=== PATIENT | female | born 1940 | race Caucasian/White ===

== ENCOUNTER 2019-04-06 12:16 | Emergency (ER) | payer MEDICARE ==
[2019-04-06] MEDS ORDERED: PREDNISONE 20 MG TABLET ONE (13:55)
[2019-04-06] MEDS ORDERED: IPRATROPIUM/ALBUTEROL SULFATE 3 ML SOLUTION IH ONE ×2 (14:01→15:27)
[2019-04-06 14:48] LABS: BASOPHILS % (AUTO) 0.7 % (0.0-5.0); EOSINOPHILS % (AUTO) 12.6 % (0.0-8.0); LYMPHOCYTES % (AUTO) 20.1 % (21.0-51.0); MEAN CORPUSCULAR HEMOGLOBIN 31.2 pg (27.0-33.0); MEAN CORPUSCULAR HGB CONC 34.6 g/dL (32.0-36.0); MEAN CORPUSCULAR VOLUME 90.1 fL (79-99); MONOCYTES % (AUTO) 11.8 % (3.0-13.0); NEUTROPHILS % (AUTO) 54.8 % (40.0-77.0); NUCLEATED RED BLOOD CELLS 0.1 % (0.0-0.19); PLATELET COUNT (AUTO) 318 K/uL (130-400); RED BLOOD CELL COUNT(AUTO) 3.88 MIL/uL (4.00-5.50); RED CELL DISTRIBUTION WIDTH 12.9 % (11.0-15.5); WHITE BLOOD COUNT (AUTO) 9.1 K/uL (4.8-10.8)
[2019-04-06 15:11] LABS: ALBUMIN 3.6 g/dL (3.5-5.0); BILIRUBIN,TOTAL 1.2 mg/dL (0.2-1.0); CREATININE 0.9 mg/dL (0.5-1.5); TOTAL PROTEIN, SERUM 7.6 g/dL (6.0-8.3)
[2019-04-06 15:27] LABS: POTASSIUM 2.7 mmol/L (3.5-5.1)
[2019-04-06] MEDS ORDERED: POTASSIUM CHLORIDE 20 MEQ ERTAB PO ONE (16:17)
[2019-04-06 18:14] LABS: APPEARANCE,URINE CLEAR (CLEAR); BILIRUBIN,URINE NEGATIVE (NEGATIVE); COLOR,URINE YELLOW (YELLOW); GLUCOSE, URINE (UA) NEGATIVE (NEGATIVE); KETONES,URINE 5 mg/dL (NEGATIVE); LEUKOCYTE ESTERASE ,URINE SMALL (NEGATIVE); NITRATE,URINE NEGATIVE (NEGATIVE); OCCULT BLOOD,URINE NEGATIVE (NEGATIVE); PH,URINE 6.5 (5.0-8.0); PROTEIN,URINE NEGATIVE (NEGATIVE)
[2019-04-06 19:06] LABS: BACTERIA,URINE Rare /HPF (None Seen); RBC,URINE None Seen /HPF (0-1); SQUAMOUS EPITHELIAL CELL,UR 0-2 /HPF (0-2); WBC,URINE 0-1 /HPF (0-1)
== END 2019-04-06 18:04 | disposition home or self-care (01) ==
LOC: EDH 12:16
DX: J40 Bronchitis, not specified as acute or chronic (principal); I10 Essential (primary) hypertension; E78.5 Hyperlipidemia, unspecified; Z85.42 Personal history of malignant neoplasm of other parts of uterus; Z87.891 Personal history of nicotine dependence; Z90.710 Acquired absence of both cervix and uterus
CPT/HCPCS: 36415; 71046; 80053; 81001; 83735; 85025; 87088; 94640

== ENCOUNTER 2019-07-16 13:16 | Inpatient (IN) | payer MEDICARE | END 2019-07-19 15:15 | LOC: EDH 13:16 → EDHIP 14:48 → 3CH 16:30 | DX: N39.0 Urinary tract infection, site not specified (principal); Z16.12 Extended spectrum beta lactamase (ESBL) resistance; E86.1 Hypovolemia ==

== ENCOUNTER → 2019-08-07 | Outpatient (CLI) | payer MEDICARE | END | disposition home or self-care (01) | LOC: RAH 08:44 | PROVIDERS: ATTEND Internal Medicine Cardiovascular Disease | DX: I05.1 Rheumatic mitral insufficiency (principal); I31.3 Pericardial effusion (noninflammatory); I10 Essential (primary) hypertension | CPT/HCPCS: 93306 ==

== ENCOUNTER → 2019-12-08 | Outpatient (CLI) | payer MEDICARE | END | disposition home or self-care (01) | LOC: SHCH 12:42 | PROVIDERS: ATTEND Internal Medicine Cardiovascular Disease | DX: R60.9 Edema, unspecified (principal) | CPT/HCPCS: 93306 ==

== ENCOUNTER 2021-09-08 14:53 | Emergency (ER) | payer MEDICARE ==
[~2021-09-08] VITALS: Ht 165.1 cm; Wt 81.6 kg
[~2021-09-08 14:53] MED LIST: ATOR-2 PO; LISI10TA24 PO; METH1TAB30 PO; NIFE30TA98 PO; OMEP40CA21 PO
[2021-09-08 15:43] LABS: BASOPHILS % (AUTO) 0.7 % (0.0-5.0); EOSINOPHILS % (AUTO) 1.4 % (0.0-8.0); HEMATOCRIT 36.9 % (36-48); MEAN CORPUSCULAR HEMOGLOBIN 31.1 pg (27.0-33.0); MEAN CORPUSCULAR HGB CONC 33.3 g/dL (32.0-36.0); MEAN CORPUSCULAR VOLUME 93.2 fL (79-99); NEUTROPHILS % (AUTO) 49.8 % (40.0-77.0); PLATELET COUNT (AUTO) 245 K/uL (130-400); RED BLOOD CELL COUNT(AUTO) 3.96 MIL/uL (4.00-5.50); RED CELL DISTRIBUTION WIDTH 13.2 % (11.0-15.5); WHITE BLOOD COUNT (AUTO) 7.4 K/uL (4.8-10.8)
[2021-09-08 15:54] LABS: CREATININE 0.8 mg/dL (0.5-1.5); POTASSIUM 3.5 mmol/L (3.5-5.1)
[2021-09-08 15:59] LABS: ALBUMIN 3.6 g/dL (3.5-5.0); BILIRUBIN,TOTAL 0.5 mg/dL (0.2-1.0); TOTAL PROTEIN, SERUM 6.8 g/dL (6.0-8.3)
[2021-09-08] MEDS ORDERED: [UNRECOGNIZED DRUG - OTHER] PO ONE (18:00)
[2021-09-08] MEDS ORDERED: NIFEDIPINE ER 30 MG TAB PO SCH (18:30)
[2021-09-08] MEDS ORDERED: AMLO-258 PO (20:27)
[2021-09-08 20:31] VITALS: BP 162/60
== END 2021-09-08 20:42 | disposition home or self-care (01) ==
LOC: EDH 14:53
DX: I10 Essential (primary) hypertension (principal); E78.00 Pure hypercholesterolemia, unspecified; Z79.899 Other long term (current) drug therapy
CPT/HCPCS: 36415; 80053; 84484; 85025; 93005

== ENCOUNTER 2023-06-26 23:13 | Observation (INO) | payer MEDICARE ==
[~2023-06-26] VITALS: Ht 165.1 cm; Wt 83.0 kg
[~2023-06-26 23:13] MED LIST changes: +AMLO-258 PO; +CEPH500B PO; +NIFE-78 PO; -NIFE30TA98 PO
[2023-06-26 23:31] LABS: BASOPHILS # (AUTO) 0.05 K/uL (0.00-0.20); BASOPHILS % (AUTO) 0.6 % (0.0-5.0); EOSINOPHILS # (AUTO) 0.17 K/uL (0.00-0.70); EOSINOPHILS % (AUTO) 2.2 % (0.0-8.0); HEMATOCRIT 37.8 % (36-48); IMMATURE GRANULOCYTE ABSOLUTE 0.02 K/uL (0-1); LYMPHOCYTES # (AUTO) 3.9 K/uL (1.0-4.8); LYMPHOCYTES % (AUTO) 49.7 % (21.0-51.0); MEAN CORPUSCULAR HEMOGLOBIN 30.1 pg (27.0-33.0); MEAN CORPUSCULAR HGB CONC 32.8 g/dL (32.0-36.0); MEAN CORPUSCULAR VOLUME 91.7 fL (79-99); MONOCYTES # (AUTO) 0.7 K/uL (0.1-1.0); MONOCYTES % (AUTO) 9.1 % (3.0-13.0); NEUTROPHILS % (AUTO) 38.1 % (40.0-77.0); PLATELET COUNT (AUTO) 226 K/uL (130-400); RED BLOOD CELL COUNT(AUTO) 4.12 MIL/uL (4.00-5.50); WHITE BLOOD COUNT (AUTO) 7.8 K/uL (4.8-10.8)
[2023-06-26 23:45] LABS: INR 0.93 (0.85-1.15); PROTHROMBIN TIME 10.7 SEC (9.6-11.6)
[2023-06-26 23:46] LABS: PARTIAL THROMBOPLASTIN TIME 23.1 SEC (26.3-35.5)
[2023-06-26 23:59] LABS: B-TYPE NATRIURETIC PEPTIDE 44 pg/mL (0-100)
[2023-06-26 23:59] LABS: ALBUMIN 3.2 g/dL (3.5-5.0); BILIRUBIN,TOTAL 0.4 mg/dL (0.2-1.0); CREATININE 0.7 mg/dL (0.5-1.5); MAGNESIUM 1.7 mg/dL (1.80-2.40); POTASSIUM 3.4 mmol/L (3.5-5.1); TOTAL PROTEIN, SERUM 6.2 g/dL (6.0-8.3)
[2023-06-27] MEDS ORDERED: ASPIRIN 325MG TAB PO ONE
[2023-06-27] MEDS ORDERED: NITROGLYCERIN 1GM OINT 1 INCH/1GM TD ONE
[2023-06-27] MEDS: NITROGLYCERIN 1GM OINT 1 INCH/1GM TD SCH ×2 (03:17→11:30)
[2023-06-27] MEDS ORDERED: ACETAMINOPHEN 325 MG TAB PO PRN ×2 (03:30)
[2023-06-27] MEDS ORDERED: MAGNESIUM 2GM PREMIX 50ML 50 ML IV SCH (03:30)
[2023-06-27] MEDS ORDERED: ONDANSETRON 4MG INJ IV PRN (03:30)
[2023-06-27] MEDS ORDERED: KCL 20 MEQ ERTAB PO ONE (03:30)
[2023-06-27] MEDS ORDERED: ASPIRIN 81 MG EC TAB PO SCH (09:00)
[2023-06-27] MEDS ORDERED: FAMOTIDINE 20MG TAB PO SCH (09:00)
[2023-06-27 13:17] VITALS: BP 139/50; PULSE 54; RESP 18; O2SAT 97
== END 2023-06-27 14:13 | disposition home or self-care (01) ==
LOC: EDH 23:13 → INTOOBSV 06-27 03:03 → EDHIP 06-27 03:03
PROVIDERS: ADMIT Hospitalist; ATTEND Hospitalist
DX: I20.0 Unstable angina (principal); I10 Essential (primary) hypertension; E87.6 Hypokalemia; E83.42 Hypomagnesemia; M79.89 Other specified soft tissue disorders; K21.9 Gastro-esophageal reflux disease without esophagitis; E78.5 Hyperlipidemia, unspecified; Z96.659 Presence of unspecified artificial knee joint; Z90.89 Acquired absence of other organs; Z79.899 Other long term (current) drug therapy; Z90.710 Acquired absence of both cervix and uterus; Z79.82 Long term (current) use of aspirin
CPT/HCPCS: 99285; 83735; 84484 ×3; 80053; 83880; 85025; 85610; 85730; 36415; 71045; 93005; 96365; 96366; G0378 ×6; J3475

== ENCOUNTER → 2024-10-28 | Outpatient (CLI) | payer MEDICARE ==
[~2024-10-28] MED LIST changes: -CEPH500B PO
--- NOTE | 2024-10-28 16:22 | HMCIMG ---
CHEST 2VWS HISTORY: Dyspnea on exertion COMPARISON: 06/26/2023 FINDINGS: Frontal and lateral projections of the chest were obtained. There is no acute pulmonary infiltrates or failure. The heart is not enlarged. Aortic calcifications are seen. Prominent interstitial markings are seen. Degenerative changes are seen of the thoracolumbar spine. IMPRESSION: 1. No acute pulmonary infiltrates.
== END | disposition home or self-care (01) ==
LOC: LAB 14:03
PROVIDERS: ATTEND Internal Medicine Cardiovascular Disease
DX: I70.0 Atherosclerosis of aorta (principal); M47.815 Spondylosis without myelopathy or radiculopathy, thoracolumbar region; R06.09 Other forms of dyspnea; R53.83 Other fatigue
CPT/HCPCS: 36415; 71046; 83880

== ENCOUNTER → 2024-12-18 | Outpatient (CLI) | payer MEDICARE ==
[2024-12-18] MEDS: REGADENOSON 0.4 MG/5 ML PF SYG IVP ONE (11:10)
== END | disposition home or self-care (01) ==
LOC: SHCH 08:59
PROVIDERS: ATTEND Internal Medicine Cardiovascular Disease
DX: R06.09 Other forms of dyspnea (principal); R53.83 Other fatigue
CPT/HCPCS: 78452; 93017; J2785; A9500 ×2

== ENCOUNTER → 2024-12-26 | Outpatient (CLI) | payer MEDICARE ==
--- NOTE | 2024-12-30 15:11 | HMCSR ---
APPROVED REPORT EXAM: Two-dimensional and M-mode echocardiogram with Doppler and color Doppler. INDICATION ICD: R53.83 Other fatigue R06.09 ALMANZA 2D Dimensions RVDd3.6 cmLVEF(%)51.2 (>50%)LVED Vol(simp.)136.0 mL IVSd1.2 (0.7-1.1cm)FS(%)26 %LVES Vol(simp.)57.0 mL LVDd5.4 (3.8-5.6cm)Ao Root(2D)3.2 (2.0-3.7cm)LVEF(%, simp.)58 % PWd0.8 (0.7-1.1cm)LVOT diam2.0 (1.8-2.4cm)LA ESV INDEX (BP)29.58 mL/m2 LVDs3.9 (2.5-4.0cm)IVC diam2.0 cm Aortic Valve AoV Vmax1.6 m/Magda Peak GR9.7 mmHgLVOT Vmax1.5 m/s AoV VTI0.4 mAo Mean GR5.1 mmHgLVOT VTI0.35 m KENNETH (VMAX)2.6 cm2Al P1/2T720 msAVA (VTI) 2.6 cm2 Mitral Valve MV E Vmax86.7 cm/sDECEL Wirt993 ms MV A Ubea626.5 cm/sP 1/2 T58 ms E/A ratio0.8MVA (PHT)3.8 cm2 MR Max PG103 mmHg TDI E/E' Qiubey36.5E/E' Ftgcigr86.7 Pulmonary Valve PV Vmax1.2 m/sPV VTI0.26 mPV Mean GR4 mmHg PV Peak GR6.1 mmHg Tricuspid Valve TR Vmax3.1 m/sRAP (EST) 8 ydDeUGZQ13.9 mmHg TR Peak GR38.9 mmHg Left Ventricle The left ventricle structure and function is normal. There is normal LV segmental wall motion. There is mild asymmetric left ventricular hypertrophy. LVEF is 60%. Grade 1 diastolic dysfunction with incr eased mean LV filling pressure. Right Ventricle The right ventricle is normal size. The right ventricular systolic function is normal. Atria The left atrium size is normal. The right atrium size is normal. Aortic Valve Aortic valve is trileaflet. Aortic valve leaflets are sclerotic but open well. Trace aortic regurgita tion. There is no aortic valvular stenosis. Mitral Valve Mitral valve leaflets are mildly calcified. Mitral annular calcification is mild. Mitral regurgitatio n is trace. There is no mitral valve stenosis. Tricuspid Valve The tricuspid valve leaflets appear normal. There is mild tricuspid regurgitation. Right ventricular systolic pressure is estimated at 40-50 mmHg. Pulmonic Valve The pulmonic valve leaflets are thin and pliable; valve motion is normal. There is trace pulmonic willow vular regurgitation. Great Vessels The aortic root is normal in size. IVC is dilated and collapses >50% with inspiration. Pericardium No pericardial effusion. Conclusion LVEF is 60%. Grade 1 diastolic dysfunction with increased mean LV filling pressure. Trace aortic regurgitation. Mitral regurgitation is trace. Right ventricular systolic pressure is estimated at 40-50 mmHg.
== END | disposition home or self-care (01) ==
LOC: SHCH 08:29
PROVIDERS: ATTEND Internal Medicine Cardiovascular Disease
DX: I08.3 Combined rheumatic disorders of mitral, aortic and tricuspid valves (principal); R06.09 Other forms of dyspnea; R53.83 Other fatigue
CPT/HCPCS: 93306